=== PATIENT | female | born 1945 | race Caucasian/White ===

== ENCOUNTER → 2016-12-09 | Outpatient (CLI) | payer MEDICARE, OTHER ==
[~2016-12-09] MED LIST: AZTH50T; BSP5T PO; CYAN100T IM; DULO60CA6 PO; FLC1T; FLD5TCR PO; FOLI0.4T2 PO; GABA400T PO; GBPN400C; LVT.025T; LVT.05T; LVT.088T PO; MSL400TEC; MSL400TEC PO; OMEP20CA6 PO; POLY119P PO; PRD10T PO; RSP2T1; RSP2T1 PO; TRAZ150T42 PO; TRIA1TAB3 PO; TRZ100T; VIT B SHOT; VNL75CCR
--- OUTSIDE RECORDS SUMMARY | 2016-12-09 15:23 | XMS REPORT | Continuity of Care Document ---
Author Author [facility] Organization [facility] Address Unknown Phone Unavailable Care Team Providers Care Rn Medicare Name Role Phone PCP Unavailable Source Comments Some departments are not documenting in the electronic medical record. If you do not see the information that you expected, contact Release of Information in the Health Information Management department at [phone] for further assistance in locating additional records.[facility] Active Allergies and Adverse Reactions No Known Allergies Current Medications Prescription Sig. Disp. Refills Start End Date Status Date folic acid (FOLVITE) 1 mg Take 1 mg by mouth daily. Active tablet levothyroxine (SYNTHROID) Take 75 mcg by mouth Active 75 mcg tablet daily. cyanocobalamin (VITAMIN Inject 1,000 mcg to Active B-12, RUBRAMIN) 1,000 area(s) as directed every mcg/mL injection 14 days. ALPRAZolam (XANAX) 0.25 Take 0.25 mg by mouth at Active mg tablet bedtime as needed. omeprazole DR(+) Take 40 mg by mouth twice Active (PRILOSEC) 40 mg capsule daily. adalimumab(+) (HUMIRA) 40 Inject 40 mg into area(s) Active mg/0.8 mL injection as directed every 14 days. oxazepam (SERAX) 10 mg Take one in AM & one @ 60 Cap 5 03/07/20 Active capsule Bedtime 15 Active Problems Problem Noted Date Subacute dyskinesia due to drugs(333.85) 02/22/2015 Overview: Formatting of this note may be different from the original. She repetitive, abnormal trunk contractions which began after she was on a neuroleptic (respiradone) for treatment of depression, Her movements are atypical in that they were not oral/buccal/lingual/labial movements and were somewhat distractible. Given her life long history of obsessions and compulsions this may be more of a tic disorder (Tourette's syndrome) than a tardive dyskinesia. While Dr. Alvarez has reported tardive tic disorders with her history of OC trait predating the use of neuroleptics, that specific tardive syndrome is unlikely. At the end of this visit I discussed the therapeutic options for the treatment of tic disorders, including Tourette's syndrome, and strongly associated conditions of obsessive compulsive disorder or tendency, and attention deficit disorders. We discuss the benefit and potential adverse effects of the SSRI family of antidepressants, the alpha 2 agonists clonidine and guanfacine (TENEX), baclofen, topiramate. Given the possibility of a tardive syndrome I did not discuss the use of neurolpetics. I am starting her on oxazepam 10 mg twice a day and she will contact us in a month with a status report. Because of a [employer] systems outage she was given a handwritten prescription for oxazepam 10 mg BID # 60 with 5 refills. Patient Instructions In one month, please call Wanda Courtney LPN at [phone] with a status report or sooner if you have any questions or concerns. Or you may contact me through [employer] Social History Tobacco Use Types Packs/Day Years Used Date Current Every Day Smoker Smokeless Tobacco: Never Used Alcohol Use Drinks/Week oz/Week Comments No 0 Standard 0.0 drinks or equivalent Last Filed Vital Signs Vital Sign Reading Time Taken Blood Pressure 185/98 05/24/2015 9:48 AM CDT Pulse 66 05/24/2015 9:48 AM CDT Temperature - - Respiratory Rate - - Height 1.676 m (5' 6") 05/24/2015 9:48 AM CDT Weight 61.689 kg (136 lb) 05/24/2015 9:48 AM CDT Body Mass Index 21.96 05/24/2015 9:48 AM CDT Oxygen Saturation - - Plan of Care Health Maintenance Due Date Last Done Comments Physical (Comprehensive) 1954 Exam Pertussis Vaccine 1958 Tetanus Vaccine 1964 Breast Cancer Screening 1987 Colorectal Cancer 1997 Screening Shingles Vaccine 2007 Osteoporosis Screening 2012 Prevnar/Pneumovax (#1) 2012 Influenza Vaccine 05/23/2016 Results from Last 3 Months Not on file
--- NOTE | 2016-12-09 15:42 | Diagnostic Imaging Report ---
PA and lateral views of the chest. INDICATION: Cough. FINDINGS: The lungs demonstrate mild hyperinflation with no focal infiltrate. No effusion or pneumothorax. The heart size is normal. Mediastinal and marek appear unremarkable. IMPRESSION: No acute process. Dictated by: Dictated on workstation # [id number]
== END ==
LOC: RAD 15:19
PROVIDERS: ATTEND Nurse Practitioner Family
DX: R05 Cough (principal); D72.829 Elevated white blood cell count, unspecified
CPT/HCPCS: 71020

== ENCOUNTER → 2017-02-04 | Outpatient (CLI) | payer MEDICARE, OTHER ==
--- NOTE | 2017-02-04 12:38 | Diagnostic Imaging Report ---
PA and lateral views of the chest. INDICATION: Cough. FINDINGS: The lungs are hyperinflated. There is mild left infrahilar patchy infiltrate. The right lung is clear. The heart size is normal. No effusion or pneumothorax. The mediastinum and marek appear unremarkable. IMPRESSION: Mild patchy left infrahilar infiltrates. Dictated by: Dictated on workstation # [id number]
== END ==
LOC: RAD 11:44
PROVIDERS: ATTEND Nurse Practitioner Family
DX: R05 Cough (principal); R91.8 Other nonspecific abnormal finding of lung field
CPT/HCPCS: 71020

== ENCOUNTER → 2017-03-27 | Outpatient (CLI) | payer MEDICARE, OTHER ==
[2017-03-27 14:03] LABS: BASOPHILS % (AUTO) 0 % (0-10); EOSINOPHILS # (AUTO) 0.4 10^3/uL (0.0-0.3); EOSINOPHILS % (AUTO) 6 % (0-10); LYMPHOCYTES # (AUTO) 0.9 X 10^3 (1.0-4.0); LYMPHOCYTES % (AUTO) 14 % (12-44); MEAN CORPUSCULAR HEMOGLOBIN 30 PG (25-34); MEAN CORPUSCULAR HGB CONC 32 G/DL (32-36); MEAN CORPUSCULAR VOLUME 92 FL (80-99); MEAN PLATELET VOLUME 11.1 FL (7.4-10.4); MONOCYTES # (AUTO) 0.5 X 10^3 (0.0-1.0); MONOCYTES % (AUTO) 9 % (0-12); NEUTROPHILS # (AUTO) 4.2 X 10^3 (1.8-7.8); NEUTROPHILS % (AUTO) 70 % (42-75); PLATELET COUNT 191 10^3/uL (130-400); RED BLOOD COUNT 4.31 10^6/uL (4.35-5.85); RED CELL DISTRIBUTION WIDTH 16.2 % (10.0-14.5)
[2017-03-27 14:10] LABS: BILIRUBIN,URINE NEGATIVE (NEGATIVE); KETONES,URINE NEGATIVE (NEGATIVE); LEUKOCYTE ESTERASE ,URINE 1+ (NEGATIVE); NITRITE,URINE NEGATIVE (NEGATIVE); PH,URINE 6 (5-9); PROTEIN,URINE NEGATIVE (NEGATIVE); UROBILINOGEN,URINE NORMAL (NORMAL)
[2017-03-27 14:24] LABS: ALBUMIN 4.2 GM/DL (3.2-4.5); BILIRUBIN,TOTAL 0.3 MG/DL (0.1-1.0); CALCIUM 8.7 MG/DL (8.5-10.1); CREATININE SERUM 1.03 MG/DL (0.60-1.30); POTASSIUM 4.2 MMOL/L (3.6-5.0)
[2017-03-27 14:35] LABS: WBC,URINE RARE /HPF
== END ==
LOC: LAB 13:41
PROVIDERS: ATTEND Psychiatry & Neurology Addiction Medicine
DX: Z79.899 Other long term (current) drug therapy (principal)
CPT/HCPCS: 36415; 80053; 81000; 85025

== ENCOUNTER → 2018-08-25 | Outpatient (CLI) | payer MEDICARE, OTHER ==
--- NOTE | 2018-08-25 12:49 | Diagnostic Imaging Report ---
INDICATION: Routine screening. COMPARISON: 05/29/2017 and 05/18/2012. TECHNIQUE: 2D and 3D bilateral screening mammography was performed with CAD. FINDINGS: Both breasts are heterogeneously dense, limiting the sensitivity of mammography. Scattered benign-appearing calcifications are identified bilaterally. There is an area of nodularity in the inferior left breast on the MLO view which appears more prominent than on the prior exam. This is not well seen on the CC view. Additional views are recommended. The axillae are unremarkable. IMPRESSION: Left breast density. Additional views are recommended for further evaluation. ACR BI-RADS Category 0: Incomplete. (Needs additional imaging evaluation). Result letter will be mailed to the patient. Note: At least 10% of breast cancer is not imaged by mammography. Dictated by: Dictated on workstation # [id number]
== END ==
LOC: RAD 09:58
PROVIDERS: ATTEND Obstetrics & Gynecology
DX: Z12.31 Encounter for screening mammogram for malignant neoplasm of breast (principal); R92.8 Other abnormal and inconclusive findings on diagnostic imaging of breast
CPT/HCPCS: 77067

== ENCOUNTER → 2018-09-16 | Outpatient (CLI) | payer MEDICARE, OTHER ==
--- NOTE | 2018-09-16 10:27 | Diagnostic Imaging Report ---
Indication: Left breast density. Patient presents for additional views. Correlation made with recent screening study from 08/25/2018. The unilateral left 2-D and 3-D diagnostic mammography was performed including spot compression, ML and conventional ML views. Additional views confirm a persistent nodularity in the inferior and slightly lateral left breast approximately 3-4 cm from the nipple. This has fairly benign features but ultrasound of this area is recommended. There are benign calcifications in the left breast. Impression: BI-RADS 0 Persistent nodularity in the lower slightly outer left breast 3-4 cm from the nipple. Further evaluation with ultrasound is recommended. ACR BI-RADS Category 0: Incomplete. (Needs additional imaging evaluation). Result letter will be mailed to the patient. Note: At least 10% of breast cancer is not imaged by mammography. Dictated by: Dictated on workstation # [id number]
--- NOTE | 2018-09-16 13:46 | Diagnostic Imaging Report ---
INDICATION: Left breast density. The study is performed for further evaluation. CORRELATION is made with diagnostic mammogram earlier the same day. FINDINGS: Sonographic interrogation of the lower outer left breast was performed. There is an ovoid cyst at the 4 o'clock location 2 cm from the nipple measuring 6 mm x 2 mm x 5 mm. This may account for the mammographic density. No solid mass is detected. IMPRESSION: BI-RADS 3 Simple ovoid cyst at the 4 o'clock location of the left breast in the region of the mammographic abnormality. Even so, followup left mammogram and left breast ultrasound is recommended in 6 months to assure continued stability. ACR BI-RADS Category 3: Probably benign findings. Result letter will be mailed to the patient. Note: At least 10% of breast cancer is not imaged by mammography. Dictated by: Dictated on workstation # [id number]
== END ==
LOC: RAD 08:11
PROVIDERS: ATTEND Obstetrics & Gynecology
DX: N60.02 Solitary cyst of left breast (principal)
CPT/HCPCS: 76642

== ENCOUNTER → 2019-05-04 | Outpatient (CLI) | payer MEDICARE, OTHER ==
--- NOTE | 2019-05-04 11:20 | Diagnostic Imaging Report ---
INDICATION: Right leg swelling, pain. TECHNIQUE: Grayscale with color-flow and Doppler waveform evaluation of the right lower extremity deep venous system. CORRELATION STUDY: None FINDINGS: Color and grayscale sonographic images demonstrate no intraluminal defect within the visualized portion of the common femoral, superficial femoral and/or popliteal veins to suggest thrombus formation. These vessels demonstrate normal response to compression and augmentation. No soft tissue fluid collection. IMPRESSION: 1. Negative for deep venous thrombosis of the right leg. Dictated by: Dictated on workstation # [id number]
== END ==
LOC: RAD 08:31
PROVIDERS: ATTEND Podiatrist Foot & Ankle Surgery
DX: R60.0 Localized edema (principal)

== ENCOUNTER → 2020-11-24 | Outpatient (CLI) | payer MEDICARE, OTHER ==
--- NOTE | 2020-11-24 12:42 | Diagnostic Imaging Report ---
PROCEDURE: US Renal Bilateral. TECHNIQUE: Multiple real-time grayscale images were obtained over the kidneys in various projections bilaterally. INDICATION: Urinary frequency. Right kidney measures 10.4 x 4.0 x 4.3 cm and the left kidney measures 9.7 x 5.0 x 5.8 cm. Cortical thickness and echogenicity is normal. There are bilateral renal cysts present. A cyst on the right measures 2.5 x 3.5 x 2.3 cm. A cyst on the left measures 2.8 x 2.0 x 2.3 cm. There are no calculi or hydronephrosis. The partially filled urinary bladder demonstrates a right ureteral jet. Left jet was not visualized. Prevoid volume of the bladder is 82 mL. No post void residual volume was detected. IMPRESSION: Bilateral renal cysts. No other significant abnormality is detected. Dictated by: Dictated on workstation # [id number]
== END ==
LOC: RAD 10:47
PROVIDERS: ATTEND Specialist
DX: R35.0 Frequency of micturition (principal); N28.1 Cyst of kidney, acquired
CPT/HCPCS: 76770

== ENCOUNTER 2022-08-14 12:58 | Emergency (ER) | payer MEDICARE ==
[~2022-08-14] VITALS: Ht 167 cm; Wt 65.8 kg
--- NOTE | 2022-08-14 13:57 | ED Abdominal Pain ---
General Chief Complaint: Abdominal/GI Problems Stated Complaint: NAUSEA|VOMITING| Nursing Triage Note: PT TO TRIAGE IN BY POV WITH WITH C/O N/V X 3 DAYS. PT DENIES FEVER, DIARRHEA, PAIN, OR ANY SICK CONTACTS. PT ALSO C/O DIZZINESS. Source of Information: Patient, Family () Exam Limitations: Physical Impairments History of Present Illness Date Seen by Provider: Aug 14, 2022 Time Seen by Provider: 13:32 Initial Comments Patient is a 76-year-old female brought to the emergency department by her chief complaint of nausea for the last 3 days. She states she has not really eaten any food but she has had a little bit of water. She states she feels like she wants to vomit but cannot. She denies fever, abdominal pain. She has had no diarrhea. No black or bloody stool. She states she is urinating normally. No sick contacts at home. She states she feels weak. Patient has very much a mask like facies. Looking at her medications it appears she does have Parkinson's. Her states that she has dementia. He states her tremor is no worse than usual. No recent traumas or falls. No recent travel. Nothing makes the nausea any better, she has not tried any medications for it. No productive cough, sore throat or runny nose. No COVID concerns. All other review of systems reviewed and negative except as stated. Timing/Duration: 2-3 Days Severity/Quality: Moderate Associated Symptoms: Nausea/Vomiting (nausea with dry heaves) Allergies and Home Medications Allergies Coded Allergies: Hydrocodone (Verified Allergy, Unknown, 05/14/06) Patient Home Medication List Home Medication List Reviewed: Yes Buspirone Hcl (Buspar) 5 Mg Tablet, 5 MG PO DAILY, (Reported) Entered as Reported by: RABIA MUSE on 11/02/101705 Cyanocobalamin (Vitamin B-12 (Non-Formulary)) 100 Mcg Tablet, 100 MCG IM MONTHLY, (Reported) Entered as Reported by: RABIA MUSE on 11/02/101707 Duloxetine Hcl (Cymbalta) 60 Mg Capsule.dr, 60 MG PO DAILY, (Reported) Entered as Reported by: RABIA MUSE on 11/02/101702 Felodipine (Plendil 5 Mg) 5 Mg Tab, 5 MG PO DAILY, (Reported) Entered as Reported by: RABIA MUSE on 11/02/10 164 Folic Acid (Folic Acid) 0.4 Mg Tablet, 1 MG PO DAILY, (Reported) Entered as Reported by: RABIA MUSE on 11/02/10 170 Gabapentin (Gabapentin) 400 Mg Tablet, 400 MG PO TID, (Reported) Entered as Reported by: RABIA MUSE on 11/02/10 170 Levothyroxine Sodium (Levothyroxine 88 Mcg Tab) 88 Mcg Tablet, 88 MCG PO DAILY, (Reported) Entered as Reported by: RABIA MUSE on 11/02/10 170 Mesalamine (Asacol) 400 Mg Tab, 800 MG PO TID, (Reported) Entered as Reported by: RABIA MUSE on 11/02/101646 Omeprazole (Prilosec) 20 Mg Capsule.dr, 20 MG PO NEEDED PRN, (Reported) Entered as Reported by: RABIA MUSE on 11/02/101707 Ondansetron (Ondansetron Odt) 4 Mg Tab.rapdis, 4 MG SL Q8H PRN for NAUSEA/VOMITING Prescribed by: JEYSON ACEVEDO on 08/14/22 1532 Polyethylene Glycol (Miralax Btl) 119 Gm Btl, 17 GM PO HS, (Reported) Entered as Reported by: JOSÉ MIGUEL MAYA on 06/28/11 1521 Risperidone (Risperdal-M Tab) 2 Mg Tab, 10 MG PO DAILY, (Reported) Entered as Reported by: RABIA MUSE on 11/02/10 170 Trazodone Hcl (Trazodone Hcl) 150 Mg Tablet, 300 MG PO HS, (Reported) Entered as Reported by: RABIA MUSE on 11/02/10 170 Triamterene/Hydrochlorothiazid (Maxzide-25 Mg Tablet) 1 Udtab Tablet, 1 TAB PO DAILY, (Reported) Entered as Reported by: RABIA MUSE on 11/02/10 164 Review of Systems Review of Systems Constitutional: see HPI EENTM: No Symptoms Reported Respiratory: No Symptoms Reported Cardiovascular: No Symptoms Reported Gastrointestinal: Nausea, Poor Appetite, Vomiting (dry heaves) Genitourinary: No Symptoms Reported Musculoskeletal: no symptoms reported Skin: no symptoms reported Psychiatric/Neurological: No Symptoms Reported All Other Systems Reviewed Negative Unless Noted: Yes Past [id number]-[id number] Hx Patient Social History Tobacco Use?: Yes Tobacco type used: Cigarettes Smoking Status: Current Everyday Smoker Use of E-Cig and/or Vaping dev: No Substance use?: No Alcohol Use?: No Pt feels they are or have been: No Immunizations Up To Date Influenza Vaccine Up-to-Date: No; Not Current First/Initial COVID19 Vaccinat: 2020 Second COVID19 Vaccination Bradley: 2020 Past Medical History Surgery/Hospitalization HX: CROHNS DISEASE Reproductive Disorders: No Physical Exam Vital Signs Vital Signs - First Documented 08/14/22 13:04 Temp 36.5 Pulse 58 Resp 14 B/P (MAP) 160/88 (112) Pulse Ox 94 O2 Delivery Room Air Capillary Refill : Less Than 3 Seconds Height/Weight/BMI Height: 0'" Weight: 0lbs. oz. 0.446830qk; 23.00 BMI Method: General Appearance: WD/WN, no apparent distress HEENT: PERRL/EOMI, other (dry oral mucosa) Neck: full range of motion, supple, normal inspection Respiratory: lungs clear, normal breath sounds, no respiratory distress, no accessory muscle use Cardiovascular: regular rate, rhythm (50's/60's) Gastrointestinal: normal bowel sounds ((quiet)), soft, tenderness (minimal epigastric tenderness) Extremities: normal inspection, no pedal edema, normal capillary refill Neurologic/Psychiatric: alert, other (very flat affect; mask-like facies) Skin: normal color, warm/dry Progress/Results/Core Measures Results/Orders Lab Results Laboratory Tests Test 08/14/22 13:37 08/14/22 14:49 Range/Units White Blood Count 7.5 4.3-11.0 10^3/uL Red Blood Count 4.45 3.80-5.11 10^6/uL Hemoglobin 13.6 11.5-16.0 g/dL Hematocrit 41 35-52 % Mean Corpuscular Volume 92 80-99 fL Mean Corpuscular Hemoglobin 31 25-34 pg Mean Corpuscular Hemoglobin Concent 33 32-36 g/dL Red Cell Distribution Width 13.7 10.0-14.5 % Platelet Count 158 130-400 10^3/uL Mean Platelet Volume 11.6 9.0-12.2 fL Immature Granulocyte % (Auto) 0 % Neutrophils (%) (Auto) 82 H 42-75 % Lymphocytes (%) (Auto) 12 12-44 % Monocytes (%) (Auto) 5 0-12 % Eosinophils (%) (Auto) 1 0-10 % Basophils (%) (Auto) 0 0-10 % Neutrophils # (Auto) 6.1 1.8-7.8 10^3/uL Lymphocytes # (Auto) 0.9 L 1.0-4.0 10^3/uL Monocytes # (Auto) 0.3 0.0-1.0 10^3/uL Eosinophils # (Auto) 0.1 0.0-0.3 10^3/uL Basophils # (Auto) 0.0 0.0-0.1 10^3/uL Immature Granulocyte # (Auto) 0.0 0.0-0.1 10^3/uL Sodium Level 143 135-145 MMOL/L Potassium Level 3.8 3.6-5.0 MMOL/L Chloride Level 109 H 98-107 MMOL/L Carbon Dioxide Level 23 21-32 MMOL/L Anion Gap 11 5-14 MMOL/L Blood Urea Nitrogen 26 H 7-18 MG/DL Creatinine 1.20 0.60-1.30 MG/DL Estimat Glomerular Filtration Rate 48 BUN/Creatinine Ratio 22 Glucose Level 153 H 70-105 MG/DL Calcium Level 9.7 8.5-10.1 MG/DL Corrected Calcium 9.3 8.5-10.1 MG/DL Total Bilirubin 0.6 0.1-1.0 MG/DL Aspartate Amino Transf (AST/SGOT) 22 5-34 U/L Alanine Aminotransferase (ALT/SGPT) 22 0-55 U/L Alkaline Phosphatase 82 40-136 U/L Total Protein 7.3 6.4-8.2 GM/DL Albumin 4.5 3.2-4.5 GM/DL Urine Color YELLOW Urine Clarity CLEAR Urine pH 6.0 5-9 Urine Specific [place] >=1.030 1.016-1.022 Urine Protein 1+ H NEGATIVE Urine Glucose (UA) NEGATIVE NEGATIVE Urine Ketones NEGATIVE NEGATIVE Urine Nitrite NEGATIVE NEGATIVE Urine Bilirubin NEGATIVE NEGATIVE Urine Urobilinogen 0.2 < = 1.0 MG/DL Urine Leukocyte Esterase TRACE H NEGATIVE Urine RBC (Auto) NEGATIVE NEGATIVE Urine RBC NONE /HPF Urine WBC 2-5 /HPF Urine Squamous Epithelial Cells 2-5 /HPF Urine Crystals NONE /LPF Urine Bacteria TRACE /HPF Urine Casts NONE /LPF Urine Mucus SMALL H /LPF Urine Culture Indicated NO My Orders Orders - JEYSON ACEVEDO MD Ed Iv/Invasive Line Start (08/14/22 13:53) Cbc With Automated Diff (08/14/22 13:53) Comprehensive Metabolic Panel (08/14/22 13:53) Ns Iv 1000 Ml (Sodium Chloride 0.9%) (08/14/22 14:00) Ondansetron Injection (Zofran Injectio (08/14/22 14:00) Medications Given in ED Current Medications Medications Dose Ordered Sig/Mike Route Start Time Stop Time Status Last Admin Dose Admin Ondansetron HCl 8 mg ONCE ONCE IVP 08/14/22 14:00 08/14/22 14:01 DC 08/14/22 14:07 8 MG Vital Signs/I&O 08/14/22 13:04 Temp 36.5 Pulse 58 Resp 14 B/P (MAP) 160/88 (112) Pulse Ox 94 O2 Delivery Room Air Blood Pressure Mean: 112 Progress Progress Note : Time: 15:27 Progress Note Patient reassessed after fluids and zofran. SHe states she is actually smiling. I spoke with her and he is comfortable taking her home. No clinical or objective findings to warrant further testing or admission. Departure Impression Primary Impression: Nausea alone Additional Impression: Parkinson disease Disposition: HOME, SELF-CARE Condition: Improved Departure-Patient Inst. Decision time for Depature: 15:29 Referrals: DAWN ALEMAN DO (PCP/Family) Primary Care Physician Add. Discharge Instructions: Use the Zofran 4mg tablets (ondansetron) every 8 hours as needed for nausea. She needs to continue all of her routine medications. If she develops a fever, vomiting, diarrhea or any other emergent, concerning symptoms, please bring her back to the ER for re-evaluation. Keep her appointment with her primary care doctor on the 21 of August. Scripts Ondansetron (Ondansetron Odt) 4 Mg Tab.rapdis 4 MG SL Q8H PRN for NAUSEA/VOMITING, #15 TAB Prov: JEYSON ACEVEDO MD 08/14/22 JEYSON ACEVEDO MD Aug 14, 2022 13:57
[2022-08-14 13:59] LABS: BASOPHILS % (AUTO) 0 % (0-10); EOSINOPHILS # (AUTO) 0.1 10^3/uL (0.0-0.3); EOSINOPHILS % (AUTO) 1 % (0-10); HEMATOCRIT 41 % (35-52); HEMOGLOBIN 13.6 g/dL (11.5-16.0); LYMPHOCYTES # (AUTO) 0.9 10^3/uL (1.0-4.0); LYMPHOCYTES % (AUTO) 12 % (12-44); MEAN CORPUSCULAR HEMOGLOBIN 31 pg (25-34); MEAN CORPUSCULAR HGB CONC 33 g/dL (32-36); MEAN CORPUSCULAR VOLUME 92 fL (80-99); MEAN PLATELET VOLUME 11.6 fL (9.0-12.2); MONOCYTES # (AUTO) 0.3 10^3/uL (0.0-1.0); MONOCYTES % (AUTO) 5 % (0-12); NEUTROPHILS # (AUTO) 6.1 10^3/uL (1.8-7.8); NEUTROPHILS % (AUTO) 82 % (42-75); PLATELET COUNT 158 10^3/uL (130-400); WHITE BLOOD COUNT 7.5 10^3/uL (4.3-11.0)
[2022-08-14] MEDS ORDERED: NS IV 1000 ML 1,000 ML IV SCH (14:00)
[2022-08-14] MEDS ORDERED: ONDANSETRON 4 MG/2 ML (SDV) Z0FRAN IVP ONE (14:00)
[2022-08-14 14:03] LABS: ALBUMIN 4.5 GM/DL (3.2-4.5); POTASSIUM 3.8 MMOL/L (3.6-5.0)
[2022-08-14 14:04] LABS: CALCIUM 9.7 MG/DL (8.5-10.1)
[2022-08-14 14:05] LABS: TOTAL PROTEIN 7.3 GM/DL (6.4-8.2)
[2022-08-14 14:07] LABS: BILIRUBIN,TOTAL 0.6 MG/DL (0.1-1.0)
[2022-08-14 14:09] LABS: CREATININE SERUM 1.2 MG/DL (0.60-1.30)
[2022-08-14 14:56] LABS: BILIRUBIN,URINE NEGATIVE (NEGATIVE); CLARITY,URINE CLEAR; COLOR,URINE YELLOW; GLUCOSE, URINE (UA) NEGATIVE (NEGATIVE); KETONES,URINE NEGATIVE (NEGATIVE); LEUKOCYTE ESTERASE ,URINE TRACE (NEGATIVE); NITRITE,URINE NEGATIVE (NEGATIVE); PROTEIN,URINE 1+ (NEGATIVE)
[2022-08-14 15:04] LABS: BACTERIA,URINE TRACE /HPF
[2022-08-14] MEDS ORDERED: ONDA4TAB11 SL (15:32)
[2022-08-14 15:57] VITALS: BP 138/67
== END 2022-08-14 15:57 | disposition home or self-care (01) ==
LOC: EDUNIT# 12:58 → ER 13:00
DX: R11.0 Nausea (principal); G20 Parkinson's disease; F02.80 Dementia in other diseases classified elsewhere, unspecified severity, without behavioral disturbance, psychotic disturbance, mood disturbance, and anxiety; F17.210 Nicotine dependence, cigarettes, uncomplicated
CPT/HCPCS: 36415; 80053; 81000; 85025; 99282

== ENCOUNTER → 2022-09-21 | Outpatient (CLI) | payer MEDICARE ==
[~2022-09-21] MED LIST changes: +ONDA4TAB11 SL
[2022-09-21 07:55] LABS: BILIRUBIN,URINE NEGATIVE (NEGATIVE); CLARITY,URINE CLOUDY; COLOR,URINE YELLOW; GLUCOSE, URINE (UA) NEGATIVE (NEGATIVE); KETONES,URINE NEGATIVE (NEGATIVE); LEUKOCYTE ESTERASE ,URINE TRACE (NEGATIVE); NITRITE,URINE NEGATIVE (NEGATIVE); PH,URINE 5.5 (5-9); PROTEIN,URINE TRACE (NEGATIVE)
[2022-09-21 08:07] LABS: BACTERIA,URINE NEGATIVE /HPF; SQUAMOUS EPITHELIAL CELL,UR 0-2 /HPF; WBC,URINE 0-2 /HPF
[2022-09-21 08:08] LABS: AMORPHOUS SEDIMENT,UR MOD AMOR URATES /LPF
== END ==
LOC: LABNPT 07:42
PROVIDERS: ATTEND Internal Medicine
DX: I10 Essential (primary) hypertension (principal); R41.0 Disorientation, unspecified; E03.9 Hypothyroidism, unspecified; W19.XXXA Unspecified fall, initial encounter
CPT/HCPCS: 81000